=== PATIENT | female | born 1940 | race Caucasian/White ===

== ENCOUNTER 2018-08-04 15:04 | Observation (INO) ==
[2018-08-04] MEDS ORDERED: 0.9 % SODIUM CHLORIDE 1,000 ML IV ONE ×2 (15:48→17:18)
[2018-08-04 15:52] LABS: Basophils # (Auto) 0 K/mcL (0.0-0.3); Basophils % (Auto) 0.3 % (0.0-2.0); Eosinophils # (Auto) 0.1 K/mcL (0.0-0.7); Eosinophils % (Auto) 0.9 % (0.0-7.0); Granulocytes % (Auto) 64.6 % (38.0-78.0); Lymphocytes # (Auto) 1.9 K/mcL (1.5-4.8); Lymphocytes % (Auto) 27.4 % (15.5-49.0); Mean Cell Volume 80.6 fL (80.0-100.0); Mean Corpuscular HGB Conc 32.4 g/dL (31.0-36.0); Monocytes # (Auto) 0.5 K/mcL (0.1-0.9); Monocytes % (Auto) 6.8 % (1.0-12.0); Platelet Count 176 K/mcL (140-440); RBC 4.49 M/mcL (4.00-5.20); Red Cell Distribution Width 14.8 % (11.5-14.5)
[2018-08-04 16:22] LABS: ALT/SGPT 7 U/l (0-40); Albumin 3.5 gm/dL (3.2-5.2); Alkaline Phosphatase 140 U/L (39-117); Blood Urea Nitrogen 24 mg/dl (8-23); Creatine Kinase 29 IU/L (24-170); Creatine Kinase MB 1.2 ng/ml (0-2.9); Myoglobin 28 ng/ml (25-58)
--- NOTE | 2018-08-04 16:27 | Cat Scan Report ---
History: Syncopal episode TECHNIQUE: The brain was imaged without contrast at 2.5 mm intervals. Radiation exposure was limited using dose reduction technology. FINDINGS: There is moderate hydrocephalus with dilatation of the lateral ventricles and mild dilatation of third ventricle. The temporal horns of the lateral ventricles have become markedly dilated compared with the prior study done at 04/15/14. The fourth ventricle is normal in size. There is no transependymal reabsorption of CSF. Patient has underlying mild generalized atrophy both above and below the tentorium. There is no apparent infarct and no hemorrhage or mass effect. No abnormal extra-axial fluid collection is present. Bone windows show no skull lesion. IMPRESSION: Moderate hydrocephalus Patricia Mitchell was called with the results Interpreted and Authenticated by: Dinesh Verdin 08/04/18
--- NOTE | 2018-08-04 16:28 | XRay Report ---
HISTORY: Syncope FINDINGS: Lungs are clear. The heart size is within upper limits of normal but magnified by AP technique. There is no congestive heart failure or pleural effusion. There are calcified plaques in the aortic arch. Multiple surgical clips are seen overlying the stomach. There is a metal pin in the left clavicle, along with an old healed fracture. Comparison with the prior exam from 04/19/14 shows the heart is larger on today's exam. However, the prior study was done PA and the current study was done AP which may magnify the heart. IMPRESSION: Borderline cardiomegaly and no acute abnormality Interpreted and Authenticated by: Dinesh Verdin 08/04/18
[2018-08-04 16:32] LABS: Appearance,Urine TURBID; Bacteria,Urine MOD /hpf (0); Bilirubin,Urine NEG (NEG); Color,Urine YELLOW; Glucose,Urine (UA) NEGATIVE (NEG); Leukocyte Esterase,Urine 500 /uL (NEG); Mucus,Urine MANY /hpf (0); Protein,Urine 100 mg/dL (NEG); Specific Gravity,Urine 1.015 (1.000-1.035); Urine Blood 0.03 mg/dL (<0.03); Urine Hyaline Cast 27 /lpf (0-2); Urine RBC 30 /hpf (0-1); Urine Squamous Epithelial Cell 10 /hpf (0-4); Urine Transitional Epi Cells 3 /hpf (0-2); Urine WBC > 182 /hpf (0-4); Urobilinogen,Urine NEG (NEG)
--- NOTE | 2018-08-04 17:20 | Emergency Department Note ---
Syncope HPI - General Chief Complaint: Syncope Stated Complaint: Syncope Time Seen by Provider: 08/04/18 15:06 Source: EMS Mode of arrival: EMS Limitations: no limitations - History of Present Illness HPI Narrative: See the history and physical dictated by Patricia Gilbert. With the CT finding of hydrocephalus, I spoke with family about considerations and discussed these things with Patricia and reviewed patient's findings and chart. She was somewhat sleepy in the room although arousable. Family was appreciative of discussion and reviewing options. - Related Data Previous Rx's Medication Instructions Recorded sitagliptin 100 mg tablet 100 mg PO QHS #90 tab 04/14/16 sennosides 8.6 mg tablet 8.6 mg PO BID #60 tab 10/21/16 Diabetic Shoes #1 ea 11/18/17 ketoconazole 2 % topical cream 1 applic TOPICAL BID #30 g 02/17/18 nystatin 100,000 unit/gram topical 1 applic TOPICAL BID #60 g 02/17/18 powder atorvastatin 20 mg tablet 20 mg PO QDAY #90 tab 07/18/18 lisinopril 10 mg tablet 10 mg PO QDAY #90 tab 07/18/18 metformin ER 1,000 mg 1,000 mg PO QAM #30 tab 07/21/18 tablet,extended release 24hr doxycycline hyclate 100 mg tablet 100 mg PO BID #20 tab 08/02/18 escitalopram 10 mg tablet 10 mg PO QDAY #90 tab 08/02/18 fluconazole 150 mg tablet 150 mg PO Q3D #3 tab 08/02/18 Allergies Allergy/AdvReac Type Severity Reaction Status Date / Time acetaminophen [From Vicodin] Allergy Unknown Nausea Verified 08/04/18 15:08 hydrocodone [From Vicodin] Allergy Unknown Nausea Verified 08/04/18 15:08 levofloxacin Allergy Unknown Vomiting Verified 08/04/18 15:08 iodine Allergy Unknown Verified 08/04/18 15:08 piroxicam [From Feldene] Allergy Rash Verified 08/04/18 15:08 hydrocodone-acetaminophen Allergy Unknown Nausea Uncoded 08/02/18 13:29 Past Medical History - Past Medical History 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 Father No problems noted. Mother Hydrocephalus Medical history: Reports: other (history of colon cancer) Surgical history ED: Reports: cancer surgery - Social History smoking status: Never smoker Alcohol use: Reports: None Physical Exam Limitations: no limitations General appearance: sleepy Head: atraumatic Eye: Present: EOMI Respiratory: Absent: respiratory distress Neurological: Present: other (Resting peacefully) Course Vital Signs Temperature 97.0 F 08/04/18 15:05 Pulse Rate 97 H 08/04/18 15:05 Respiratory Rate 20 08/04/18 15:05 Blood Pressure 163/112 08/04/18 15:05 Pulse Oximetry (%) 93 08/04/18 15:05 Temperature 97.0 F 08/04/18 15:05 Pulse Rate 65 08/04/18 17:36 Respiratory Rate 18 08/04/18 17:36 Blood Pressure 89/38 08/04/18 17:36 Pulse Oximetry (%) 94 08/04/18 17:36 Syncope - Medical Records Medical records reviewed: Yes I reviewed the patient's medical records. - Lab Data Lab results reviewed: Yes I reviewed the patient's lab results. Result diagrams: 08/04/18 15:27 08/04/18 15:26 Lab Results 08/04/18 08/04/18 08/04/18 Range/Units 15:26 15:26 15:26 WBC (4.5-11.0) K/mcL RBC (4.00-5.20) M/mcL Hgb (12.0-15.0) g/dL Hct (36.0-48.0) % MCV (80.0-100.0) fL MCH (26.0-34.0) pg MCHC (31.0-36.0) g/dL RDW (11.5-14.5) % Plt Count (140-440) K/mcL MPV (7.4-10.4) fL Gran % (38.0-78.0) % Lymph % (Auto) (15.5-49.0) % [place] % (Auto) (1.0-12.0) % Eos % (Auto) (0.0-7.0) % Baso % (Auto) (0.0-2.0) % Gran # (1.8-8.0) K/mcL Lymph # (Auto) (1.5-4.8) K/mcL [place] # (Auto) (0.1-0.9) K/mcL Eos # (Auto) (0.0-0.7) K/mcL Baso # (Auto) (0.0-0.3) K/mcL VBG Lactic Acid (0.5-2.0) mmol/L Sodium 138 (133-145) mmol/L Potassium 4.7 (3.3-5.1) mmol/L Chloride 103 (96-108) mmol/L Carbon Dioxide 20 L (22-30) mmol/L Anion Gap 15.0 (8-16) BUN 24 H (8-23) mg/dl Creatinine 1.2 H (0.6-1.1) mg/dl GFR Calculation 43 Glucose 215 H (70-105) mg/dL Calcium 8.6 (8.6-10.4) mg/dl Total Bilirubin 0.4 (0.0-1.0) mg/dL AST 13 (0-37) U/l ALT 7 (0-40) U/l Alkaline Phosphatase 140 H (39-117) U/L Total Creatine Kinase 29 (24-170) IU/L CK-MB (CK-2) 1.2 (0-2.9) ng/ml Myoglobin 28 (25-58) ng/ml Troponin T < 0.01 (0-0.03) ng/ml Total Protein 6.9 (5.9-8.4) gm/dL Albumin 3.5 (3.2-5.2) gm/dL Globulin 3.4 (2.2-3.7) gm/dL Albumin/Globulin Ratio 1.0 (1.0-2.3) Procalcitonin (<0.10) ng/mL Urine Color Urine Appearance Urine pH (5.0-9.0) Ur Specific [place] (1.000-1.035) Urine Protein (NEG) mg/dL Urine Glucose (UA) (NEG) mg/dL Urine Ketones (NEG) mg/dL Urine Occult Blood (<0.03) mg/dL Urine Nitrate (NEG) Urine Bilirubin (NEG) mg/dL Urine Urobilinogen (NEG) mg/dL Ur Leukocyte Esterase (NEG) /uL Urine RBC (0-1) /hpf Urine WBC (0-4) /hpf Ur Squamous Epith Cells (0-4) /hpf Ur Transition Epith Cell (0-2) /hpf Urine Bacteria (0) /hpf Hyaline Casts (0-2) /lpf Urine Mucus (0) /hpf Ur Culture Indicated? 08/04/18 08/04/18 08/04/18 Range/Units 15:26 15:27 15:55 WBC 6.8 (4.5-11.0) K/mcL RBC 4.49 (4.00-5.20) M/mcL Hgb 11.7 L (12.0-15.0) g/dL Hct 36.2 (36.0-48.0) % MCV 80.6 (80.0-100.0) fL MCH 26.1 (26.0-34.0) pg MCHC 32.4 (31.0-36.0) g/dL RDW 14.8 H (11.5-14.5) % Plt Count 176 (140-440) K/mcL MPV 9.5 (7.4-10.4) fL Gran % 64.6 (38.0-78.0) % Lymph % (Auto) 27.4 (15.5-49.0) % [place] % (Auto) 6.8 (1.0-12.0) % Eos % (Auto) 0.9 (0.0-7.0) % Baso % (Auto) 0.3 (0.0-2.0) % Gran # 4.4 (1.8-8.0) K/mcL Lymph # (Auto) 1.9 (1.5-4.8) K/mcL [place] # (Auto) 0.5 (0.1-0.9) K/mcL Eos # (Auto) 0.1 (0.0-0.7) K/mcL Baso # (Auto) 0 (0.0-0.3) K/mcL VBG Lactic Acid (0.5-2.0) mmol/L Sodium (133-145) mmol/L Potassium (3.3-5.1) mmol/L Chloride (96-108) mmol/L Carbon Dioxide (22-30) mmol/L Anion Gap (8-16) BUN (8-23) mg/dl Creatinine (0.6-1.1) mg/dl GFR Calculation Glucose (70-105) mg/dL Calcium (8.6-10.4) mg/dl Total Bilirubin (0.0-1.0) mg/dL AST (0-37) U/l ALT (0-40) U/l Alkaline Phosphatase (39-117) U/L Total Creatine Kinase (24-170) IU/L CK-MB (CK-2) (0-2.9) ng/ml Myoglobin (25-58) ng/ml Troponin T (0-0.03) ng/ml Total Protein (5.9-8.4) gm/dL Albumin (3.2-5.2) gm/dL Globulin (2.2-3.7) gm/dL Albumin/Globulin Ratio (1.0-2.3) Procalcitonin 0.25 (<0.10) ng/mL Urine Color Yellow Urine Appearance Turbid Urine pH 5.0 (5.0-9.0) Ur Specific [place] 1.015 (1.000-1.035) Urine Protein 100 A (NEG) mg/dL Urine Glucose (UA) Negative (NEG) mg/dL Urine Ketones Neg (NEG) mg/dL Urine Occult Blood 0.03 A (<0.03) mg/dL Urine Nitrate Neg (NEG) Urine Bilirubin Neg (NEG) mg/dL Urine Urobilinogen Neg (NEG) mg/dL Ur Leukocyte Esterase 500 A (NEG) /uL Urine RBC 30 H (0-1) /hpf Urine WBC > 182 H (0-4) /hpf Ur Squamous Epith Cells 10 H (0-4) /hpf Ur Transition Epith Cell 3 H (0-2) /hpf Urine Bacteria Mod A (0) /hpf Hyaline Casts 27 H (0-2) /lpf Urine Mucus Many A (0) /hpf Ur Culture Indicated? No 08/04/18 Range/Units 15:57 WBC (4.5-11.0) K/mcL RBC (4.00-5.20) M/mcL Hgb (12.0-15.0) g/dL Hct (36.0-48.0) % MCV (80.0-100.0) fL MCH (26.0-34.0) pg MCHC (31.0-36.0) g/dL RDW (11.5-14.5) % Plt Count (140-440) K/mcL MPV (7.4-10.4) fL Gran % (38.0-78.0) % Lymph % (Auto) (15.5-49.0) % [place] % (Auto) (1.0-12.0) % Eos % (Auto) (0.0-7.0) % Baso % (Auto) (0.0-2.0) % Gran # (1.8-8.0) K/mcL Lymph # (Auto) (1.5-4.8) K/mcL [place] # (Auto) (0.1-0.9) K/mcL Eos # (Auto) (0.0-0.7) K/mcL Baso # (Auto) (0.0-0.3) K/mcL VBG Lactic Acid 1.5 (0.5-2.0) mmol/L Sodium (133-145) mmol/L Potassium (3.3-5.1) mmol/L Chloride (96-108) mmol/L Carbon Dioxide (22-30) mmol/L Anion Gap (8-16) BUN (8-23) mg/dl Creatinine (0.6-1.1) mg/dl GFR Calculation Glucose (70-105) mg/dL Calcium (8.6-10.4) mg/dl Total Bilirubin (0.0-1.0) mg/dL AST (0-37) U/l ALT (0-40) U/l Alkaline Phosphatase (39-117) U/L Total Creatine Kinase (24-170) IU/L CK-MB (CK-2) (0-2.9) ng/ml Myoglobin (25-58) ng/ml Troponin T (0-0.03) ng/ml Total Protein (5.9-8.4) gm/dL Albumin (3.2-5.2) gm/dL Globulin (2.2-3.7) gm/dL Albumin/Globulin Ratio (1.0-2.3) Procalcitonin (<0.10) ng/mL Urine Color Urine Appearance Urine pH (5.0-9.0) Ur Specific [place] (1.000-1.035) Urine Protein (NEG) mg/dL Urine Glucose (UA) (NEG) mg/dL Urine Ketones (NEG) mg/dL Urine Occult Blood (<0.03) mg/dL Urine Nitrate (NEG) Urine Bilirubin (NEG) mg/dL Urine Urobilinogen (NEG) mg/dL Ur Leukocyte Esterase (NEG) /uL Urine RBC (0-1) /hpf Urine WBC (0-4) /hpf Ur Squamous Epith Cells (0-4) /hpf Ur Transition Epith Cell (0-2) /hpf Urine Bacteria (0) /hpf Hyaline Casts (0-2) /lpf Urine Mucus (0) /hpf Ur Culture Indicated? - Radiology Data Radiology results reviewed: Yes I reviewed the patient's radiology results. - EKG Data EKG results narrative: No acute coronary syndrome findings. Right bundle branch block with LAFB. This ECG will be read by a chain machine operator. Disposition Pt seen by [facility]/PA only: No Clinical Impression: Syncope Qualifiers: Syncope type: unspecified Qualified Code(s): R55 - Syncope and collapse Hypotension Qualifiers: Hypotension type: unspecified hypotension type Qualified Code(s): I95.9 - Hypotension, unspecified Hydrocephalus Qualifiers: Hydrocephalus type: unspecified Qualified Code(s): G91.9 - Hydrocephalus, unspecified UTI (urinary tract infection) Qualifiers: Urinary tract infection type: urethritis Qualified Code(s): N34.2 - Other urethritis Summary: After a liter of fluid, patient still had some low blood pressures. These were systolic 89 and 90s several times. Patient's labs were unremarkable for signs of sepsis including a normal lactic acid at 1.5, white count was normal. She had no hypoxia. She was not tachycardic. She did have what appears to be significant bacteriuria. Discussion with family includes that the hydrocephalus will remain untreated as it is doubtful that it would make a major difference for patient and patient's mother had similar findings and problems, received a shunt, and it did not make any significant difference for her. With patient having hypotension, UTI, syncopal episode or near syncopal, it seems reasonable to monitor for how to help this blood pressure be improved as this is the most likely cause. Holding her lisinopril can be done, an antibiotic (ceftriaxone) has been ordered, blood cultures have been ordered. 5:30 PM - I spoke with Dr. Milan Olvera, hospitalist, who is accepting patient's care inpatient order for observation to help with above considerations. Disposition: Xfer As Outpt/Obs ([facility]) Referrals: Deep Hoover MD [Primary Care Provider] -
--- NOTE | 2018-08-04 17:25 | Emergency Department Note ---
Syncope HPI - General Chief Complaint: Syncope Stated Complaint: Syncope Time Seen by Provider: 08/04/18 15:06 Source: family, EMS Mode of arrival: EMS Limitations: altered mental status - History of Present Illness HPI Narrative: 78-year-old female in ED with sudden syncopal episode while sitting. Patient was with her daughter at the doctor's office during husbands visit. Daughter and patient walked to the bathroom and then sat in the waiting room. Daughter states patient became slightly agitated and took her wedding rings off then gave daughter a blank stare and passed out. Daughter called for help and EMS was called. Dr. Hoover reported patient appeared to have left facial droop, and took approximately 4 minutes to recover. EMS states patient was alert to verbal. Patient's SPO2 was within normal range upon EMS arrival. Patient's blood pressure was also 138/68, blood sugar 168. Patient does have dementia. Daughter states patient does walk, states patient's activity has decreased immensely. Patient has been sleeping in and staying in bed for long periods of time. Patient was assessed per wellness exam 2 days ago. Biggest concern was rash on her lower abdomen. She does not smoke, does not drink alcohol, does have a double marijuana cookies rather regularly. Last cookie was ingested 12:30. Patient does not normally have an episode like this with the cookies. Daughter states it helps patient with agitation. MD Complaint: loss of consciousness Onset (ago): minute(s) (30) Duration of Episode: 4 (minutes) Witnessed: yes - by bystander Context: at rest Injuries Sustained Associated with Event: none Current Symptoms: back to baseline (hypotension) Treatments prior to arrival: none - Related Data Previous Rx's Medication Instructions Recorded sitagliptin 100 mg tablet 100 mg PO QHS #90 tab 04/14/16 sennosides 8.6 mg tablet 8.6 mg PO BID #60 tab 10/21/16 Diabetic Shoes #1 ea 11/18/17 ketoconazole 2 % topical cream 1 applic TOPICAL BID #30 g 02/17/18 nystatin 100,000 unit/gram topical 1 applic TOPICAL BID #60 g 02/17/18 powder atorvastatin 20 mg tablet 20 mg PO QDAY #90 tab 07/18/18 lisinopril 10 mg tablet 10 mg PO QDAY #90 tab 07/18/18 metformin ER 1,000 mg 1,000 mg PO QAM #30 tab 07/21/18 tablet,extended release 24hr doxycycline hyclate 100 mg tablet 100 mg PO BID #20 tab 08/02/18 escitalopram 10 mg tablet 10 mg PO QDAY #90 tab 08/02/18 fluconazole 150 mg tablet 150 mg PO Q3D #3 tab 08/02/18 Allergies Allergy/AdvReac Type Severity Reaction Status Date / Time acetaminophen [From Vicodin] Allergy Unknown Nausea Verified 08/04/18 15:08 hydrocodone [From Vicodin] Allergy Unknown Nausea Verified 08/04/18 15:08 levofloxacin Allergy Unknown Vomiting Verified 08/04/18 15:08 iodine Allergy Unknown Verified 08/04/18 15:08 piroxicam [From Feldene] Allergy Rash Verified 08/04/18 15:08 hydrocodone-acetaminophen Allergy Unknown Nausea Uncoded 08/02/18 13:29 Review of Systems All systems ED: reviewed and negative except as stated. 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 Absent: conjunctival injection ENT: normal oropharynx, mucous membranes moist, TM's normal bilaterally, normal external ear exam Neck: Present: normal inspection. Absent: tenderness, lymphadenopathy Chest: Present: normal inspection, symmetric chest wall rise. Absent: tenderness Respiratory: Present: normal lung sounds bilaterally. Absent: respiratory distress, rales/crackles, wheezes, stridor Cardiovascular: Present: irregular rhythm Abdominal: Present: soft, tenderness, normal bowel sounds. Absent: distention, guarding, rebound, rigidity Abdominal tenderness: Present: diffuse Extremities: Present: normal inspection. Absent: pedal edema Neurological: Present: alert (to verbal, keeps eyes closed), other (patient difficult to assess, she does squeeze both hands and move both feet accordingly. Does not follow with eyes or near any facial expressions, patient repeats I'm tired I just want to sleep.). Absent: normal gait Skin: Present: warm, dry, intact, normal color. Absent: cool, diaphoretic Course Vital Signs Temperature 97.0 F 08/04/18 15:05 Pulse Rate 97 H 08/04/18 15:05 Respiratory Rate 20 08/04/18 15:05 Blood Pressure 163/112 08/04/18 15:05 Pulse Oximetry (%) 93 08/04/18 15:05 Temperature 97.0 F 08/04/18 15:05 Pulse Rate 65 08/04/18 17:36 Respiratory Rate 18 08/04/18 17:36 Blood Pressure 89/38 08/04/18 17:36 Pulse Oximetry (%) 94 08/04/18 17:36 Syncope - MDM Narrative Medical decision making narrative: Patient provided total 2 L normal saline, 1 g ceftriaxone. Consulted with Dr. Antoine who visited with the family, and called hospitalist. Dr. Olvera to accept patient. - Lab Data Lab results reviewed: Yes I reviewed the patient's lab results. Result diagrams: 08/04/18 15:27 08/04/18 15:26 Lab Results 08/04/18 08/04/18 08/04/18 Range/Units 15:26 15:26 15:26 WBC (4.5-11.0) K/mcL RBC (4.00-5.20) M/mcL Hgb (12.0-15.0) g/dL Hct (36.0-48.0) % MCV (80.0-100.0) fL MCH (26.0-34.0) pg MCHC (31.0-36.0) g/dL RDW (11.5-14.5) % Plt Count (140-440) K/mcL MPV (7.4-10.4) fL Gran % (38.0-78.0) % Lymph % (Auto) (15.5-49.0) % [place] % (Auto) (1.0-12.0) % Eos % (Auto) (0.0-7.0) % Baso % (Auto) (0.0-2.0) % Gran # (1.8-8.0) K/mcL Lymph # (Auto) (1.5-4.8) K/mcL [place] # (Auto) (0.1-0.9) K/mcL Eos # (Auto) (0.0-0.7) K/mcL Baso # (Auto) (0.0-0.3) K/mcL VBG Lactic Acid (0.5-2.0) mmol/L Sodium 138 (133-145) mmol/L Potassium 4.7 (3.3-5.1) mmol/L Chloride 103 (96-108) mmol/L Carbon Dioxide 20 L (22-30) mmol/L Anion Gap 15.0 (8-16) BUN 24 H (8-23) mg/dl Creatinine 1.2 H (0.6-1.1) mg/dl GFR Calculation 43 Glucose 215 H (70-105) mg/dL Calcium 8.6 (8.6-10.4) mg/dl Total Bilirubin 0.4 (0.0-1.0) mg/dL AST 13 (0-37) U/l ALT 7 (0-40) U/l Alkaline Phosphatase 140 H (39-117) U/L Total Creatine Kinase 29 (24-170) IU/L CK-MB (CK-2) 1.2 (0-2.9) ng/ml Myoglobin 28 (25-58) ng/ml Troponin T < 0.01 (0-0.03) ng/ml Total Protein 6.9 (5.9-8.4) gm/dL Albumin 3.5 (3.2-5.2) gm/dL Globulin 3.4 (2.2-3.7) gm/dL Albumin/Globulin Ratio 1.0 (1.0-2.3) Procalcitonin (<0.10) ng/mL Urine Color Urine Appearance Urine pH (5.0-9.0) Ur Specific [place] (1.000-1.035) Urine Protein (NEG) mg/dL Urine Glucose (UA) (NEG) mg/dL Urine Ketones (NEG) mg/dL Urine Occult Blood (<0.03) mg/dL Urine Nitrate (NEG) Urine Bilirubin (NEG) mg/dL Urine Urobilinogen (NEG) mg/dL Ur Leukocyte Esterase (NEG) /uL Urine RBC (0-1) /hpf Urine WBC (0-4) /hpf Ur Squamous Epith Cells (0-4) /hpf Ur Transition Epith Cell (0-2) /hpf Urine Bacteria (0) /hpf Hyaline Casts (0-2) /lpf Urine Mucus (0) /hpf Ur Culture Indicated? 08/04/18 08/04/18 08/04/18 Range/Units 15:26 15:27 15:55 WBC 6.8 (4.5-11.0) K/mcL RBC 4.49 (4.00-5.20) M/mcL Hgb 11.7 L (12.0-15.0) g/dL Hct 36.2 (36.0-48.0) % MCV 80.6 (80.0-100.0) fL MCH 26.1 (26.0-34.0) pg MCHC 32.4 (31.0-36.0) g/dL RDW 14.8 H (11.5-14.5) % Plt Count 176 (140-440) K/mcL MPV 9.5 (7.4-10.4) fL Gran % 64.6 (38.0-78.0) % Lymph % (Auto) 27.4 (15.5-49.0) % [place] % (Auto) 6.8 (1.0-12.0) % Eos % (Auto) 0.9 (0.0-7.0) % Baso % (Auto) 0.3 (0.0-2.0) % Gran # 4.4 (1.8-8.0) K/mcL Lymph # (Auto) 1.9 (1.5-4.8) K/mcL [place] # (Auto) 0.5 (0.1-0.9) K/mcL Eos # (Auto) 0.1 (0.0-0.7) K/mcL Baso # (Auto) 0 (0.0-0.3) K/mcL VBG Lactic Acid (0.5-2.0) mmol/L Sodium (133-145) mmol/L Potassium (3.3-5.1) mmol/L Chloride (96-108) mmol/L Carbon Dioxide (22-30) mmol/L Anion Gap (8-16) BUN (8-23) mg/dl Creatinine (0.6-1.1) mg/dl GFR Calculation Glucose (70-105) mg/dL Calcium (8.6-10.4) mg/dl Total Bilirubin (0.0-1.0) mg/dL AST (0-37) U/l ALT (0-40) U/l Alkaline Phosphatase (39-117) U/L Total Creatine Kinase (24-170) IU/L CK-MB (CK-2) (0-2.9) ng/ml Myoglobin (25-58) ng/ml Troponin T (0-0.03) ng/ml Total Protein (5.9-8.4) gm/dL Albumin (3.2-5.2) gm/dL Globulin (2.2-3.7) gm/dL Albumin/Globulin Ratio (1.0-2.3) Procalcitonin 0.25 (<0.10) ng/mL Urine Color Yellow Urine Appearance Turbid Urine pH 5.0 (5.0-9.0) Ur Specific [place] 1.015 (1.000-1.035) Urine Protein 100 A (NEG) mg/dL Urine Glucose (UA) Negative (NEG) mg/dL Urine Ketones Neg (NEG) mg/dL Urine Occult Blood 0.03 A (<0.03) mg/dL Urine Nitrate Neg (NEG) Urine Bilirubin Neg (NEG) mg/dL Urine Urobilinogen Neg (NEG) mg/dL Ur Leukocyte Esterase 500 A (NEG) /uL Urine RBC 30 H (0-1) /hpf Urine WBC > 182 H (0-4) /hpf Ur Squamous Epith Cells 10 H (0-4) /hpf Ur Transition Epith Cell 3 H (0-2) /hpf Urine Bacteria Mod A (0) /hpf Hyaline Casts 27 H (0-2) /lpf Urine Mucus Many A (0) /hpf Ur Culture Indicated? No 08/04/18 Range/Units 15:57 WBC (4.5-11.0) K/mcL RBC (4.00-5.20) M/mcL Hgb (12.0-15.0) g/dL Hct (36.0-48.0) % MCV (80.0-100.0) fL MCH (26.0-34.0) pg MCHC (31.0-36.0) g/dL RDW (11.5-14.5) % Plt Count (140-440) K/mcL MPV (7.4-10.4) fL Gran % (38.0-78.0) % Lymph % (Auto) (15.5-49.0) % [place] % (Auto) (1.0-12.0) % Eos % (Auto) (0.0-7.0) % Baso % (Auto) (0.0-2.0) % Gran # (1.8-8.0) K/mcL Lymph # (Auto) (1.5-4.8) K/mcL [place] # (Auto) (0.1-0.9) K/mcL Eos # (Auto) (0.0-0.7) K/mcL Baso # (Auto) (0.0-0.3) K/mcL VBG Lactic Acid 1.5 (0.5-2.0) mmol/L Sodium (133-145) mmol/L Potassium (3.3-5.1) mmol/L Chloride (96-108) mmol/L Carbon Dioxide (22-30) mmol/L Anion Gap (8-16) BUN (8-23) mg/dl Creatinine (0.6-1.1) mg/dl GFR Calculation Glucose (70-105) mg/dL Calcium (8.6-10.4) mg/dl Total Bilirubin (0.0-1.0) mg/dL AST (0-37) U/l ALT (0-40) U/l Alkaline Phosphatase (39-117) U/L Total Creatine Kinase (24-170) IU/L CK-MB (CK-2) (0-2.9) ng/ml Myoglobin (25-58) ng/ml Troponin T (0-0.03) ng/ml Total Protein (5.9-8.4) gm/dL Albumin (3.2-5.2) gm/dL Globulin (2.2-3.7) gm/dL Albumin/Globulin Ratio (1.0-2.3) Procalcitonin (<0.10) ng/mL Urine Color Urine Appearance Urine pH (5.0-9.0) Ur Specific [place] (1.000-1.035) Urine Protein (NEG) mg/dL Urine Glucose (UA) (NEG) mg/dL Urine Ketones (NEG) mg/dL Urine Occult Blood (<0.03) mg/dL Urine Nitrate (NEG) Urine Bilirubin (NEG) mg/dL Urine Urobilinogen (NEG) mg/dL Ur Leukocyte Esterase (NEG) /uL Urine RBC (0-1) /hpf Urine WBC (0-4) /hpf Ur Squamous Epith Cells (0-4) /hpf Ur Transition Epith Cell (0-2) /hpf Urine Bacteria (0) /hpf Hyaline Casts (0-2) /lpf Urine Mucus (0) /hpf Ur Culture Indicated? - Radiology Data Radiology results reviewed: Yes I reviewed the patient's radiology results. Chest x-ray: FINDINGS: Lungs are clear. The heart size is within upper limits of normal but magnified by AP technique. There is no congestive heart failure or pleural effusion. There are calcified plaques in the aortic arch. Multiple surgical clips are seen overlying the stomach. There is a metal pin in the left clavicle, along with an old healed fracture. Comparison with the prior exam from 04/19/14 shows the heart is larger on today's exam. However, the prior study was done PA and the current study was done AP which may magnify the heart. IMPRESSION: Borderline cardiomegaly and no acute abnormality Head CT without contrast: History: Syncopal episode TECHNIQUE: The brain was imaged without contrast at 2.5 mm intervals. Radiation exposure was limited using dose reduction technology. FINDINGS: There is moderate hydrocephalus with dilatation of the lateral ventricles and mild dilatation of third ventricle. The temporal horns of the lateral ventricles have become markedly dilated compared with the prior study done at 04/15/14. The fourth ventricle is normal in size. There is no transependymal reabsorption of CSF. Patient has underlying mild generalized atrophy both above and below the tentorium. There is no apparent infarct and no hemorrhage or mass effect. No abnormal extra-axial fluid collection is present. Bone windows show no skull lesion. IMPRESSION: Moderate hydrocephalus Patricia Mitchell was called with the results Disposition Pt seen by [employer]/PA only: No (Arash) Clinical Impression: Syncope Qualifiers: Syncope type: unspecified Qualified Code(s): R55 - Syncope and collapse Hypotension Qualifiers: Hypotension type: unspecified hypotension type Qualified Code(s): I95.9 - Hypotension, unspecified Hydrocephalus Qualifiers: Hydrocephalus type: unspecified Qualified Code(s): G91.9 - Hydrocephalus, unspecified UTI (urinary tract infection) Qualifiers: Urinary tract infection type: urethritis Qualified Code(s): N34.2 - Other urethritis Disposition: Xfer As Outpt/Obs ([facility]) Condition: Fair Referrals: Deep Hoover MD [Primary Care Provider] - Time of Disposition: 18:23
[2018-08-04] MEDS ORDERED: cefTRIAXone 1 GM VIAL IM ONE (17:29)
[2018-08-04] MEDS ORDERED: cefTRIAXone 1 GM in DEXTROSE 5% IN WATER 50 ML IV SCH ×2 (17:45→18:53)
--- NOTE | 2018-08-04 18:11 | Internal Med History&Physical ---
Medical - H&P: [facility] Patient information: Note initiated : 08/04/18 at 6:10 pm Service Date, if different from initiated Date: [] Patient: Kyleigh Nascimento a 78 y/o F admitted on for Syncope. Chief Complaint: [] History of present illness: Ms. Nascimento is a 78 year old F Who presents the ED for syncope. History is obtained from the chart as the patient has advanced dementia and unable to give history. Family members are not present, Per the chart patient was at a doctor's office for her with the daughter as well. The patient went to the bathroom and sat in the waiting room. Daughter states the patient became agitated took her wedding rings off and gave her a blank stare and passed out. Sounds like it took about 4 minutes for her to recover. No witnessed seizure activity mention no mention of urinary incontinence or tongue biting. History is vague on if it was actually syncope or decreased level of consciousness with near syncope. She has had continued mental decline especially as of late. Staying in bed longer each day. Also recently developed a rash wound on her abdomen. Uses marijuana cookies for agitation daughter states that helps. In the ED she had labile blood pressures with systolics as low as 89 and 90. EKG showed no arrhythmias but did have a prolonged QT, QRS was prolonged but that was chronic based on old EKGs. Urinalysis was dirty and had hyaline casts as well. Procalcitonin was mildly elevated borderline. Troponin and lactate were okay. Her blood glucose at the time EMS checked her in the office was okay. She did have a low blood pressure in the office of systolic 103, perhaps she has been running low. Imaging included chest x-ray which is unremarkable and a CT brain which showed moderate hydrocephalus. This was discussed with family regarding what it meant and potential treatments. Family does not want any aggressive measures incl uding a BUTCHER shunt as the patient mothers had a BUTCHER shunt have made no difference. Unable to gather review of systems given patient's advanced dementia. 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 Father No problems noted. Mother Hydrocephalus Social History (Last Updated 08/02/18 @ 16:07 by Deep Hoover MD) lives with and daughter no smoking or etoh marijuana cookies regularly Medical - H&P: Meds Home Medications Medication Instructions Recorded Confirmed Type sitagliptin 100 mg tablet 100 mg PO QHS #90 tab 04/14/16 08/02/18 Rx sennosides 8.6 mg tablet 8.6 mg PO BID #60 tab 10/21/16 08/02/18 Rx Diabetic Shoes #1 ea 11/18/17 08/02/18 Rx ketoconazole 2 % topical cream 1 applic TOPICAL BID #30 g 02/17/18 08/02/18 Rx nystatin 100,000 unit/gram topical 1 applic TOPICAL BID #60 g 02/17/18 08/02/18 Rx powder atorvastatin 20 mg tablet 20 mg PO QDAY #90 tab 07/18/18 08/02/18 Rx lisinopril 10 mg tablet 10 mg PO QDAY #90 tab 07/18/18 08/02/18 Rx metformin ER 1,000 mg 1,000 mg PO QAM #30 tab 07/21/18 08/02/18 Rx tablet,extended release 24hr doxycycline hyclate 100 mg tablet 100 mg PO BID #20 tab 08/02/18 08/02/18 Rx escitalopram 10 mg tablet 10 mg PO QDAY #90 tab 08/02/18 Rx fluconazole 150 mg tablet 150 mg PO Q3D #3 tab 08/02/18 08/02/18 Rx Allergies Allergy/AdvReac Type Severity Reaction Status Date / Time acetaminophen [From Vicodin] Allergy Unknown Nausea Verified 08/04/18 15:08 hydrocodone [From Vicodin] Allergy Unknown Nausea Verified 08/04/18 15:08 levofloxacin Allergy Unknown Vomiting Verified 08/04/18 15:08 iodine Allergy Unknown Verified 08/04/18 15:08 piroxicam [From Feldene] Allergy Rash Verified 08/04/18 15:08 hydrocodone-acetaminophen Allergy Unknown Nausea Uncoded 08/02/18 13:29 Medical - H&P: Exam - Constitutional Vitals: Temp Pulse Resp BP Pulse Ox 97.0 F 65 18 89/38 94 08/04/18 15:05 08/04/18 17:36 08/04/18 17:36 08/04/18 17:36 08/04/18 17:36 Exam: General: Alert, Awake, No acute Distress Eyes/N/T: EOMI, PEERL, MMM Head/Neck: neck supple, normocephalic atraumatic CV: Regular with occasional ectopic, No murmurs, normal s1/s2 Pulm: Clear b/l, no wheezing/rhonchi/rales Abd: soft, nontender, +BS x4, wound to the lower mid abdomen abdomen Ext: no clubbing/cyanosis/edema Neuro: Alert, no focal deficits, moves all extremities, CN 2-12 grossly intact, symmetrical strength b/l upper/lower, sensations intact b/l upper/lower Skin: warm/dry Medical - H&P: Reslt - Labs CBC & Chem 7: 08/04/18 15:27 08/04/18 15:26 Labs: Short CBC 08/04/18 Range/Units 15:27 WBC 6.8 (4.5-11.0) K/mcL Hgb 11.7 L (12.0-15.0) g/dL Hct 36.2 (36.0-48.0) % Plt Count 176 (140-440) K/mcL BMP 08/04/18 15:26 Sodium 138 Potassium 4.7 Chloride 103 Carbon Dioxide 20 L BUN 24 H Creatinine 1.2 H Glucose 215 H Calcium 8.6 Cardiac Enzymes 08/04/18 08/04/18 Range/Units 15:26 15:26 Total Creatine Kinase 29 (24-170) IU/L CK-MB (CK-2) 1.2 (0-2.9) ng/ml Troponin T < 0.01 (0-0.03) ng/ml Liver Function 08/04/18 Range/Units 15:26 Total Bilirubin 0.4 (0.0-1.0) mg/dL AST 13 (0-37) U/l ALT 7 (0-40) U/l Alkaline Phosphatase 140 H (39-117) U/L Albumin 3.5 (3.2-5.2) gm/dL Urine 08/04/18 Range/Units 15:55 Urine Color Yellow Urine Appearance Turbid Urine pH 5.0 (5.0-9.0) Ur Specific [place] 1.015 (1.000-1.035) Urine Protein 100 A (NEG) mg/dL Urine Glucose (UA) Negative (NEG) mg/dL - Impressions Chest x-ray unremarkable CT brain with moderate hydrocephalus EKG with a prolonged QRS which is chronic however she does have prolonged QT which was normal on old EKG. Medical - H&P: A/P - Narrative A/P Narrative: A: *?Syncope vs decrease LOC/near-syncope: etiology ?hypotension vs neurocardiogenic in setting of UTI. doubt cardiac but did have prolonged QT on EKG *Hypotension: likely poor oral intake vs BP meds *UTI: *Abdominal wound: *Advanced dementia: *Hydrocephalus: Family does not want to pursue any aggressive measures including BUTCHER shunt *DM: On metformin *HTN: On lisinopril 10 mg daily *CKD III: * P: -IVF's -Rocephin pending -tele monitoring and frequent Vital signs -Orthostatic VS -f/u EKG in AM -wound care - -pt/ot -ppx: lovenox
[2018-08-04] MEDS ORDERED: LACTULOSE 20 GM/30 ML ORAL.SOL PO PRN (18:53)
[2018-08-04] MEDS ORDERED: POTASSIUM CHLORIDE 20 MEQ TABLET PO PRN ×2 (18:53)
[2018-08-04] MEDS ORDERED: 0.9 % SODIUM CHLORIDE 1,000 ML IV SCH (18:53)
[2018-08-04] MEDS ORDERED: DEXTROSE 31 GM ORAL.SUSP PO PRN (18:53)
[2018-08-04] MEDS ORDERED: PROMETHAZINE 12.5 MG SUPP.RECT PR PRN (18:53)
[2018-08-04] MEDS ORDERED: SENNOSIDES 1 TABLET PO PRN (18:53)
[2018-08-04] MEDS ORDERED: ONDANSETRON 4 MG/2 ML VIAL IV PRN (18:53)
[2018-08-04] MEDS ORDERED: ACETAMINOPHEN 325 MG TABLET PO PRN (18:53)
[2018-08-04] MEDS ORDERED: ENALAPRILAT 1.25 MG/ML VIAL IV PRN (18:53)
[2018-08-04] MEDS ORDERED: DEXTROSE 50% 50 ML VIAL IV PRN (18:53)
[2018-08-04] MEDS ORDERED: POLYETHYLENE GLYCOL 3350 17 GM PACKET PO PRN (18:53)
[2018-08-04] MEDS ORDERED: PROMETHAZINE 25 MG TABLET PO PRN (18:53)
[2018-08-04] MEDS ORDERED: POTASSIUM CHLORIDE 40 MEQ in DEXTROSE 5% IN WATER 500 ML IV PRN (18:53)
[2018-08-04] MEDS ORDERED: IPRATROPIUM/ALBUTEROL 3 ML AMPUL.NEB NEB PRN (18:53)
[2018-08-04] MEDS ORDERED: MAGNESIUM SULFATE 2 GM/50 ML BAG IV PRN (18:53)
[2018-08-04] MEDS: DOCUSATE SODIUM 100 MG CAPSULE PO SCH (20:54)
[2018-08-04] MEDS: INSULIN LISPRO 1 UNIT/0.01 ML UNIT SQ SCH (20:54)
[2018-08-04] MEDS: 0.9 % SODIUM CHLORIDE 10 ML SYRINGE IV SCH (20:55)
[2018-08-05] MEDS ORDERED: OLANZapine 10 MG VIAL IM ONE (02:05)
[2018-08-05] MEDS ORDERED: OLANZapine 10 MG VIAL IM SCH (02:15)
[2018-08-05 04:37] LABS: Basophils # (Auto) 0 K/mcL (0.0-0.3); Basophils % (Auto) 0.4 % (0.0-2.0); Eosinophils # (Auto) 0 K/mcL (0.0-0.7); Eosinophils % (Auto) 0.1 % (0.0-7.0); Granulocytes % (Auto) 71.5 % (38.0-78.0); Lymphocytes # (Auto) 1.3 K/mcL (1.5-4.8); Lymphocytes % (Auto) 21.2 % (15.5-49.0); Mean Cell Volume 80.2 fL (80.0-100.0); Mean Corpuscular HGB Conc 32.9 g/dL (31.0-36.0); Monocytes # (Auto) 0.4 K/mcL (0.1-0.9); Monocytes % (Auto) 6.8 % (1.0-12.0); Platelet Count 174 K/mcL (140-440); RBC 4.24 M/mcL (4.00-5.20); Red Cell Distribution Width 14.9 % (11.5-14.5)
[2018-08-05] MEDS ORDERED: HALOPERIDOL LACTATE 5 MG/ML VIAL ONE ×2 (04:53→20:28)
[2018-08-05 05:00] LABS: ALT/SGPT 7 U/l (0-40); Albumin 3.3 gm/dL (3.2-5.2); Alkaline Phosphatase 131 U/L (39-117); Bilirubin,Direct < 0.2 mg/dL (0.0-0.3); Blood Urea Nitrogen 21 mg/dl (8-23); Gamma Glutamyl Transpeptidase 14 U/L (5-36); Uric Acid 7.7 mg/dL (2.5-8.0)
[2018-08-05] MEDS ORDERED: HALOPERIDOL LACTATE 5 MG/ML VIAL IM ONE (05:02)
[2018-08-05] MEDS: 0.9 % SODIUM CHLORIDE 10 ML SYRINGE IV SCH ×3 (05:26→22:34)
--- NOTE | 2018-08-05 07:19 | Internal Med Progress Note ---
Medical - PN: Subj Patient information: Note initiated : 08/05/18 at 7:16 am Service Date, if different from initiated Date: [] Patient: Kyleigh Nascimento a 78 y/o F admitted on 08/04/18 for Syncope. Chief Complaint: [] Interval history: Ms. Nascimento is a 78 year old F Who presents the ED for syncope. History is obtained from the chart as the patient has advanced dementia and unable to give history. Family members are not present, Per the chart patient was at a doctor's office for her with the daughter as well. The patient went to the bathroom and sat in the waiting room. Daughter states the patient became agitated took her wedding rings off and gave her a blank stare and passed out. Sounds like it took about 4 minutes for her to recover. No witnessed seizure activity mention no mention of urinary incontinence or tongue biting. History is vague on if it was actually syncope or decreased level of consciousness with near syncope. She has had continued mental decline especially as of late. Staying in bed longer each day. Also recently developed a rash wound on her abdomen. Uses marijuana cookies for agitation daughter states that helps. In the ED she had labile blood pressures with systolics as low as 89 and 90. EKG showed no arrhythmias but did have a prolonged QT, QRS was prolonged but that was chronic based on old EKGs. Urinalysis was dirty and had hyaline casts as well. Procalcitonin was mildly elevated borderline. Troponin and lactate were okay. Her blood glucose at the time EMS checked her in the office was okay. She did have a low blood pressure in the office of systolic 103, perhaps she has been running low. Imaging included chest x-ray which is unremarkable and a CT brain which showed moderate hydrocephalus. This was discussed with family regarding what it meant and potential treatments. Family does not want any aggressive measures inclu ding a FORGE OPERATOR shunt as the patient mothers had a FORGE OPERATOR shunt have made no difference. Unable to gather review of systems given patient's advanced dementia. 08/05 Became quite agitated and pulling at lines last night. Needed medication to calm her down. This morning she is resting comfortably in bed. No abnormalities on telemetry follow-up EKG with prolonged QT but better than yesterday EKG. No syncope. Labs unremarkable. Patient being treated for urinary tract infection. Unable to gather review of systems given patient's advanced dementia. - Constitutional Vitals: Vital Signs Temp Pulse Resp BP Pulse Ox 98.7 F 75 14 136/71 90 08/05/18 04:18 08/05/18 01:49 08/05/18 05:52 08/05/18 05:51 08/05/18 05:52 Period Temp Pulse Resp BP Sys/Chambers Pulse Ox Last 24 Hr 97.0 F-98.8 F 61-97 0-24 89-163/38-112 90-100 Intake and Output 08/04/18 08/05/18 08/05/18 21:59 05:59 13:59 Intake Total 1050 Output Total 252 300 Balance 1050 -252 -300 Weight 82.418 kg Intake & Output: Intake & Output 08/04/18 08/05/18 08/05/18 21:59 05:59 13:59 Intake Total 1050 Output Total 252 300 Balance 1050 -252 -300 Weight 82.418 kg Intake: IV 1050 Sodium Chloride 0.9% 1,000 ml @ 1000 Wide Open IV BOLUS ONE Rx#: [id number] Rocephin 1 gm In Dextrose 5% in 50 Water 50 ml @ 100 mls/hr IV Q24H [facility] Rx#:[id number] Output: Void Amount 250 300 # of times incontinent of urine 2 Other: Urine Appearance Sediment Cloudy Fem Cath Clear Urine Color Dark Yellow Bright Yellow Fem Cath Pale Exam: General: Alert, Awake, No acute Distress Eyes/N/T: EOMI, Head/Neck: neck supple, CV: Regular, No murmurs, Pulm: Clear b/l, no wheezing/rhonchi/rales Abd: soft, nontender, +BS x4, wound to the lower mid abdomen abdomen Ext: no clubbing/cyanosis/edema Neuro: Alert, no focal deficits, moves all extremities, dementia Skin: warm/dry Medical - PN: Obj Da - Labs CBC & Chem 7: 08/05/18 03:32 08/05/18 03:32 Labs: Abnormal Lab Results 08/05/18 08/05/18 08/04/18 03:32 03:32 15:55 Hgb 11.2 L Hct 34.0 L RDW 14.9 H Lymph # (Auto) 1.3 L Carbon Dioxide 20 L BUN Creatinine Glucose 117 H Calcium 8.1 L Alkaline Phosphatase 131 H Urine Protein 100 A Urine Occult Blood 0.03 A Ur Leukocyte Esterase 500 A Urine RBC 30 H Urine WBC > 182 H Ur Squamous Epith Cells 10 H Ur Transition Epith Cell 3 H Urine Bacteria Mod A Hyaline Casts 27 H Urine Mucus Many A 08/04/18 08/04/18 15:27 15:26 Hgb 11.7 L Hct RDW 14.8 H Lymph # (Auto) Carbon Dioxide 20 L BUN 24 H Creatinine 1.2 H Glucose 215 H Calcium Alkaline Phosphatase 140 H Urine Protein Urine Occult Blood Ur Leukocyte Esterase Urine RBC Urine WBC Ur Squamous Epith Cells Ur Transition Epith Cell Urine Bacteria Hyaline Casts Urine Mucus Meds: Medications Acetaminophen (Tylenol) 650 mg PO Q6HP PRN PRN Reason: PAIN/FEVER > 101 Albuterol/Ipratropium (Duoneb) 3 ml NEB Q4HP PRN PRN Reason: Shortness Of Breath Ceftriaxone Sodium (Rocephin) 1 gm IV Q24H [facility] Dextrose (Dextrose 50%) 0 ml IV UD PRN PRN Reason: Hypoglycemia Diagnostic Test (Pha) (Accu-Chek) 1 each FS ACHS [facility] Last Admin: 08/04/18 20:53 Dose: 1 each Documented by: Docusate Sodium (Colace) 100 mg PO BID [facility] Last Admin: 08/04/18 20:54 Dose: Not Given Documented by: Enalaprilat (Vasotec) 0 mg IV Q2HP PRN PRN Reason: Hypertension Enoxaparin Sodium (Lovenox) 40 mg SQ DAILY [facility] Glucose (Insta-Glucose) 15 gm PO PRN PRN PRN Reason: Hypoglycemia Haloperidol Lactate (Haldol) 5 mg IM ONCE ONE Stop: 08/05/18 05:03 Last Admin: 08/05/18 05:03 Dose: Not Given Documented by: Potassium Chloride 40 meq/ (Dextrose) 520 mls @ 130 mls/hr IV UD PRN PRN Reason: Potassium < 3 Magnesium Sulfate (Magnesium Sulfate) 2 gm in 50 mls @ 50 mls/hr IV UD PRN PRN Reason: Magnesium </= 1.6 Sodium Chloride (Sodium Chloride 0.9%) 1,000 mls @ 75 mls/hr IV .[id number] [facility] Stop: 08/05/18 08:12 Last Admin: 08/04/18 19:38 Dose: 75 mls/hr Documented by: Insulin Human Lispro (Humalog) 0 unit SQ ACHS [facility]; Protocol Last Admin: 08/04/18 20:54 Dose: 4 units Documented by: Lactulose (Cephulac) 10 gm PO DAILYP PRN PRN Reason: Constipation Olanzapine (Zyprexa) 5 mg IM ONCE [facility] Last Admin: 08/05/18 02:40 Dose: Not Given Documented by: Ondansetron HCl (Zofran) 4 mg IV Q4HP PRN PRN Reason: Nausea And Vomiting Polyethylene Glycol (Miralax) 17 gm PO DAILYP PRN PRN Reason: Constipation Potassium Chloride (Kdur) 40 meq PO UD PRN PRN Reason: Potssium is 3-3.5 Potassium Chloride (Kdur) 40 meq PO UD PRN PRN Reason: Potassium < 3 Promethazine HCl (Phenergan) 0 mg PO Q6HP PRN PRN Reason: Nausea And Vomiting Promethazine HCl (Phenergan) 12.5 mg WI Q6HP PRN PRN Reason: Pain Senna (Senokot) 2 tab PO HSP PRN PRN Reason: Constipation Sodium Chloride (Saline Flush) 10 ml IV Q8 [facility] Last Admin: 08/05/18 05:26 Dose: Not Given Documented by: Medical - PN: A/P - Time Spent With Patient Total time spent is greater than 50% in coordination of care (as documented) at patient's floor/unit and/or counseling patient: - Narrative A/P Narrative: A: *?Syncope vs decrease LOC/near-syncope: etiology ?hypotension vs neurocardiogenic in setting of UTI. doubt cardiac but did have prolonged QT on EKG -awaiting orthostatic VS, trying to find orthostatics from ED last night. *Hypotension: likely poor oral intake vs BP meds, Improved *UTI: *Abdominal wound: *Advanced dementia: *Hydrocephalus: Family does not want to pursue any aggressive measures including FORGE OPERATOR shunt *DM: On metformin *HTN: On lisinopril 10 mg daily *CKD III: * P: -IVF's finish -Rocephin pending -tele monitoring and frequent Vital signs -Orthostatic VS -wound care - -pt/ot -ppx: [employer]enox Medical - PN: Qual - VTE Deep Vein Thrombosis/Pulmonary Embolism Present on Admission: No
[2018-08-05] MEDS ORDERED: ENOXAPARIN 40 MG/0.4 ML SYRINGE SQ SCH (09:00)
[2018-08-05] MEDS ORDERED: cefTRIAXone 1 GM VIAL IV SCH (09:00)
--- NOTE | 2018-08-05 09:37 | Discharge Summary ---
Medical - DS: Prov Patient information: Note initiated : 08/05/18 at 9:34 am Service Date, if different from initiated Date: [] Patient: Kyleigh Nascimento a 78 y/o F admitted on 08/04/18 for Syncope. Chief Complaint: [] Date of admission: 08/04/18 18:50 Discharge date: 08/06/18 Primary care physician: Deep Hoover Consults: 08/04/18 Consult to Physician [CONS] Stat Comment: Consulting Provider: Milan Olvera Reason For Exam: Physician to Consult Medical - DS: Meds - Discharge Medications Active and Home Medications: Home Medications sitagliptin 100 mg tablet 100 mg PO QHS #90 tab 04/14/16 [Rx Confirmed 08/02/18 Last Taken Unknown] sennosides 8.6 mg tablet 8.6 mg PO BID #60 tab 10/21/16 [Rx Confirmed 08/02/18 Last Taken Unknown] Diabetic Shoes #1 ea 11/18/17 [Rx Confirmed 08/02/18 Last Taken Unknown] ketoconazole 2 % topical cream 1 applic TOPICAL BID #30 g 02/17/18 [Rx Confirmed 08/02/18 Last Taken Unknown] nystatin 100,000 unit/gram topical powder 1 applic TOPICAL BID #60 g 02/17/18 [Rx Confirmed 08/02/18 Last Taken Unknown] atorvastatin 20 mg tablet 20 mg PO QDAY #90 tab 07/18/18 [Rx Confirmed 08/02/18 Last Taken Unknown] lisinopril 10 mg tablet 10 mg PO QDAY #90 tab 07/18/18 [Rx Confirmed 08/02/18 Last Taken Unknown] metformin ER 1,000 mg tablet,extended release 24hr 1,000 mg PO QAM #30 tab 07/21/18 [Rx Confirmed 08/02/18 Last Taken Unknown] doxycycline hyclate 100 mg tablet 100 mg PO BID #20 tab 08/02/18 [Rx Confirmed 08/02/18 Last Taken Unknown] escitalopram 10 mg tablet 10 mg PO QDAY #90 tab 08/02/18 [Rx Last Taken Unknown] fluconazole 150 mg tablet 150 mg PO Q3D #3 tab 08/02/18 [Rx Confirmed 08/02/18 Last Taken Unknown] Medical - DS: Hosp Hospital course: Ms. Nascimento is a 78 year old F Who presents the ED for syncope. History is obtained from the chart as the patient has advanced dementia and unable to give history. Family members are not present, Per the chart patient was at a doctor's office for her with the daughter as well. The patient went to the bathroom and sat in the waiting room. Daughter states the patient became agitated took her wedding rings off and gave her a blank stare and passed out. Sounds like it took about 4 minutes for her to recover. No witnessed seizure activity mention no mention of urinary incontinence or tongue biting. History is vague on if it was actually syncope or decreased level of consciousness with near syncope. She has had continued mental decline especially as of late. Staying in bed longer each day. Also recently developed a rash wound on her abdomen. Uses marijuana cookies for agitation daughter states that helps. In the ED she had labile blood pressures with systolics as low as 89 and 90. EKG showed no arrhythmias but did have a prolonged QT, QRS was prolonged but that was chronic based on old EKGs. Urinalysis was dirty and had hyaline casts as well. Procalcitonin was mildly elevated borderline. Troponin and lactate were okay. Her blood glucose at the time EMS checked her in the office was okay. She did have a low blood pressure in the office of systolic 103, perhaps she has been running low. Imaging included chest x-ray which is unremarkable and a CT brain which showed moderate hydrocephalus. This was discussed with family regarding what it meant and potential treatments. Family does not want any aggressive measures including a POULTRY FARMER shunt as the patient mothers had a POULTRY FARMER shunt have made no difference. Unable to gather review of systems given patient's advanced dementia. 08/05 Became quite agitated and pulling at lines last night. Needed medication to calm her down. This morning she is resting comfortably in bed. No abnormalities on telemetry follow-up EKG with prolonged QT but better than yesterday EKG. No syncope. Labs unremarkable. Patient being treated for urinary tract infection. Unable to gather review of systems given patient's advanced dementia. 08/06 Patient becomes agitated at night. sleeping this morning. Patient has been in general decline for some time with family having more difficulty in taking care of her. Patient sleeping more. Family will pursue hospice on outpatient basis. Discharge diagnosis: Decreased LOC versus near syncope/syncope hypotension Secondary discharge diagnosis: General decline with advanced dementia UTI abdominal wound hydrocephalus diabetes hypertension chronic kidney disease - Time Spent with Patient Total time spent providing and/or coordinating discharge services: Greater than 30 minutes Medical - DS: Exam - Constitutional Vitals: Vital Signs Temp Pulse Resp BP BP BP Pulse Ox 08/05/18 05:52 14 90 08/05/18 05:51 12 136/71 93 08/05/18 04:18 98.7 F 23 H 98 08/05/18 03:18 16 144/82 97 08/05/18 03:17 12 08/05/18 03:03 14 08/05/18 02:40 13 94 08/05/18 01:49 75 16 156/84 100 08/05/18 00:08 98.8 F 15 105/89 95 08/04/18 22:50 24 H 111/91 08/04/18 22:43 15 103/76 08/04/18 21:53 23 H 08/04/18 21:38 61 24 H 103/76 93 08/04/18 20:41 22 140/88 95 08/04/18 20:33 136/112 08/04/18 20:28 20 124/94 08/04/18 19:37 81 18 08/04/18 19:31 80 14 129/74 94 08/04/18 19:16 78 136/76 95 08/04/18 19:07 76 15 117/65 94 08/04/18 18:53 97.2 F 23 H 117/65 117/65 95 08/04/18 18:47 68 107/56 93 08/04/18 18:32 107/51 08/04/18 18:31 137/60 08/04/18 18:23 137/60 08/04/18 18:22 125/53 08/04/18 17:36 65 18 89/38 94 08/04/18 17:17 74 89/38 93 08/04/18 17:12 75 103/47 94 08/04/18 16:02 16 126/54 08/04/18 15:47 82 12 94/52 91 08/04/18 15:42 87 0 L 98/53 92 08/04/18 15:05 97.0 F 97 H 20 163/112 93 Intake and Output 08/04/18 08/05/18 08/05/18 21:59 05:59 13:59 Intake Total 1050 Output Total 252 300 Balance 1050 -252 -300 Intake: IV 1050 Sodium Chloride 0.9% 1,000 ml @ 1000 Wide Open IV BOLUS ONE Rx#: [id number] Rocephin 1 gm In Dextrose 5% in 50 Water 50 ml @ 100 mls/hr IV Q24H [facility] Rx#:[id number] Output: Void Amount 250 300 # of times incontinent of urine 2 Other: Urine Appearance Sediment Cloudy Fem Cath Clear Urine Color Dark Yellow Bright Yellow Fem Cath Pale Weight 82.418 kg Medical - DS: Data Labs on day of discharge: Labs from last 24 hours 08/05/18 08/05/18 08/05/18 03:32 03:32 03:32 WBC 5.9 RBC 4.24 Hgb 11.2 L Hct 34.0 L MCV 80.2 MCH 26.4 MCHC 32.9 RDW 14.9 H Plt Count 174 MPV 9.2 Gran % 71.5 Lymph % (Auto) 21.2 Routt % (Auto) 6.8 Eos % (Auto) 0.1 Baso % (Auto) 0.4 Gran # 4.2 Lymph # (Auto) 1.3 L Routt # (Auto) 0.4 Eos # (Auto) 0 Baso # (Auto) 0 VBG Lactic Acid Sodium 142 Potassium 4.1 Chloride 108 Carbon Dioxide 20 L Anion Gap 14.0 BUN 21 Creatinine 1.1 GFR Calculation 48 Glucose 117 H Uric Acid 7.7 Calcium 8.1 L Phosphorus 3.8 Magnesium 1.7 Total Bilirubin 0.3 Direct Bilirubin < 0.2 GGT 14 AST 13 ALT 7 Alkaline Phosphatase 131 H Lactate Dehydrogenase 188 Total Creatine Kinase CK-MB (CK-2) Myoglobin Troponin T Total Protein 6.6 Albumin 3.3 Globulin 3.3 Albumin/Globulin Ratio 1.0 Triglycerides 122 Procalcitonin 0.32 TSH Urine Color Urine Appearance Urine pH Ur Specific Weaver Urine Protein Urine Glucose (UA) Urine Ketones Urine Occult Blood Urine Nitrate Urine Bilirubin Urine Urobilinogen Ur Leukocyte Esterase Urine RBC Urine WBC Ur Squamous Epith Cells Ur Transition Epith Cell Urine Bacteria Hyaline Casts Urine Mucus Ur Culture Indicated? 08/04/18 08/04/18 08/04/18 15:57 15:57 15:55 WBC RBC Hgb Hct MCV MCH MCHC RDW Plt Count MPV Gran % Lymph % (Auto) Routt % (Auto) Eos % (Auto) Baso % (Auto) Gran # Lymph # (Auto) Routt # (Auto) Eos # (Auto) Baso # (Auto) VBG Lactic Acid 1.5 Sodium Potassium Chloride Carbon Dioxide Anion Gap BUN Creatinine GFR Calculation Glucose Uric Acid Calcium Phosphorus Magnesium Total Bilirubin Direct Bilirubin GGT AST ALT Alkaline Phosphatase Lactate Dehydrogenase Total Creatine Kinase CK-MB (CK-2) Myoglobin Troponin T Total Protein Albumin Globulin Albumin/Globulin Ratio Triglycerides Procalcitonin TSH 2.78 Urine Color Yellow Urine Appearance Turbid Urine pH 5.0 Ur Specific Weaver 1.015 Urine Protein 100 A Urine Glucose (UA) Negative Urine Ketones Neg Urine Occult Blood 0.03 A Urine Nitrate Neg Urine Bilirubin Neg Urine Urobilinogen Neg Ur Leukocyte Esterase 500 A Urine RBC 30 H Urine WBC > 182 H Ur Squamous Epith Cells 10 H Ur Transition Epith Cell 3 H Urine Bacteria Mod A Hyaline Casts 27 H Urine Mucus Many A Ur Culture Indicated? No 08/04/18 08/04/18 08/04/18 15:27 15:26 15:26 WBC 6.8 RBC 4.49 Hgb 11.7 L Hct 36.2 MCV 80.6 MCH 26.1 MCHC 32.4 RDW 14.8 H Plt Count 176 MPV 9.5 Gran % 64.6 Lymph % (Auto) 27.4 Routt % (Auto) 6.8 Eos % (Auto) 0.9 Baso % (Auto) 0.3 Gran # 4.4 Lymph # (Auto) 1.9 Routt # (Auto) 0.5 Eos # (Auto) 0.1 Baso # (Auto) 0 VBG Lactic Acid Sodium Potassium Chloride Carbon Dioxide Anion Gap BUN Creatinine GFR Calculation Glucose Uric Acid Calcium Phosphorus Magnesium Total Bilirubin Direct Bilirubin GGT AST ALT Alkaline Phosphatase Lactate Dehydrogenase Total Creatine Kinase CK-MB (CK-2) Myoglobin Troponin T < 0.01 Total Protein Albumin Globulin Albumin/Globulin Ratio Triglycerides Procalcitonin 0.25 TSH Urine Color Urine Appearance Urine pH Ur Specific Weaver Urine Protein Urine Glucose (UA) Urine Ketones Urine Occult Blood Urine Nitrate Urine Bilirubin Urine Urobilinogen Ur Leukocyte Esterase Urine RBC Urine WBC Ur Squamous Epith Cells Ur Transition Epith Cell Urine Bacteria Hyaline Casts Urine Mucus Ur Culture Indicated? 08/04/18 08/04/18 15:26 15:26 WBC RBC Hgb Hct MCV MCH MCHC RDW Plt Count MPV Gran % Lymph % (Auto) Routt % (Auto) Eos % (Auto) Baso % (Auto) Gran # Lymph # (Auto) Routt # (Auto) Eos # (Auto) Baso # (Auto) VBG Lactic Acid Sodium 138 Potassium 4.7 Chloride 103 Carbon Dioxide 20 L Anion Gap 15.0 BUN 24 H Creatinine 1.2 H GFR Calculation 43 Glucose 215 H Uric Acid Calcium 8.6 Phosphorus Magnesium Total Bilirubin 0.4 Direct Bilirubin GGT AST 13 ALT 7 Alkaline Phosphatase 140 H Lactate Dehydrogenase Total Creatine Kinase 29 CK-MB (CK-2) 1.2 Myoglobin 28 Troponin T Total Protein 6.9 Albumin 3.5 Globulin 3.4 Albumin/Globulin Ratio 1.0 Triglycerides Procalcitonin TSH Urine Color Urine Appearance Urine pH Ur Specific Weaver Urine Protein Urine Glucose (UA) Urine Ketones Urine Occult Blood Urine Nitrate Urine Bilirubin Urine Urobilinogen Ur Leukocyte Esterase Urine RBC Urine WBC Ur Squamous Epith Cells Ur Transition Epith Cell Urine Bacteria Hyaline Casts Urine Mucus Ur Culture Indicated? Preliminary micro results at discharge 08/04/18 15:55 Urine Culture - Preliminary Urine - Clean Void [facility] - DS: A/P - Patient/Caregiver Discharge Instructions Activity: as per physical therapy Diet: Consistent Carbohydrate - Follow up Plan Follow up with: Deep Hoover MD [Primary Care Provider] - Disposition: Home Health Service Prognosis: Serious Rehab Potential: Fair Overall status at discharge: patient is back to baseline Medical - DS: Qual - VTE Deep Vein Thrombosis/Pulmonary Embolism Present on Admission: No
[2018-08-05] MEDS: INSULIN LISPRO 1 UNIT/0.01 ML UNIT SQ SCH ×4 (10:01→22:34)
--- NOTE | 2018-08-05 16:37 | General Surgery Consult Note ---
History of Present Illness Patient information: Note initiated : 08/05/18 at 4:35 pm Service Date, if different from initiated Date: [] Patient: Kyleigh Nascimento 78 y/o F admitted on 08/04/18 for Syncope. Chief Complaint: [] Consult date: 08/05/18 Requesting physician: Milan Stone (Abdomen wall wound) History of present illness: I saw this patient in ICU 120 / A along with Dr. stone and RN. CC: Consulted for chronic wound LEFT lower abdomen wall. Patient with h/o multiple medical problems. Admitted via ER following a syncopal episode UTI / ?? Urosepsis, Dementia, htn, dm2 . Patient DNR Status. ( Awaits evaluation for Hospice Placement ) Noted to have abdomen wall skin lesion / wound. Medications and Allergies Home Medications Medication Instructions Recorded Confirmed Type sennosides 8.6 mg tablet 8.6 mg PO BID #60 tab 10/21/16 08/06/18 Rx Diabetic Shoes #1 ea 11/18/17 08/02/18 Rx RX: Atorvastatin [Lipitor] 20 mg PO HS 08/05/18 08/05/18 History RX: Doxycycline Hyclate 100 mg PO BID 08/05/18 08/05/18 History RX: Escitalopram [Lexapro] 10 mg PO DAILY 08/05/18 08/05/18 History RX: Lisinopril [Zestril] 10 mg PO DAILY 08/05/18 08/05/18 History RX: Memantine [Namenda] 5 mg PO BID 08/05/18 08/05/18 History RX: metFORMIN [Glucophage] 1,000 mg PO [facility] 08/05/18 08/05/18 History Allergies Allergy/AdvReac Type Severity Reaction Status Date / Time iodine Allergy Mild Rash Verified 08/04/18 19:04 piroxicam [From Feldene] Allergy Mild Rash Verified 08/04/18 19:04 acetaminophen [From Vicodin] AdvReac Mild Nausea Verified 08/04/18 19:04 hydrocodone [From Vicodin] AdvReac Mild Nausea Verified 08/04/18 19:04 levofloxacin AdvReac Mild Vomiting Verified 08/04/18 19:04 Exam Temp Pulse Resp BP Pulse Ox 97.1 F 75 20 113/86 97 08/05/18 16:00 08/05/18 01:49 08/05/18 16:00 08/05/18 16:00 08/05/18 16:00 - General physical appearance well developed, moderate distress, chronically ill - Eyes PERRL, normal ocular movement - ENT normal nares, poor long term, other (Dry mucous membranes) - Head Head exam IM: Present: atraumatic, normocephalic - Neck trachea midline, no venous distension - Cardiovascular Cardiovascular exam IM: Present: normal rate and rhythm - Respiratory other (SOB with diminished air entry lung bases) - Abdomen Abdomen: Present: soft, non tender, bowel sounds - Integumentary Present: other (LLQ abdomen wall with area of chronic dermatitis / scar with superficial epidermal abrasion. NO signs of acute inflammation. NO purulence, crepitus, cellulits . ) - Neurologic Present: confused - Musculoskeletal Present: other (Bed confined) - Psychiatric Present: other (Unable to assess.) Results - Labs 08/05/18 03:32 08/05/18 03:32 Abnormal lab results 08/05/18 08/05/18 Range/Units 03:32 03:32 Hgb 11.2 L (12.0-15.0) g/dL Hct 34.0 L (36.0-48.0) % RDW 14.9 H (11.5-14.5) % Lymph # (Auto) 1.3 L (1.5-4.8) K/mcL Carbon Dioxide 20 L (22-30) mmol/L Glucose 117 H (70-105) mg/dL Calcium 8.1 L (8.6-10.4) mg/dl Alkaline Phosphatase 131 H (39-117) U/L Diabetes panel 08/05/18 Range/Units 03:32 Sodium 142 (133-145) mmol/L Potassium 4.1 (3.3-5.1) mmol/L Chloride 108 (96-108) mmol/L Carbon Dioxide 20 L (22-30) mmol/L BUN 21 (8-23) mg/dl Creatinine 1.1 (0.6-1.1) mg/dl Glucose 117 H (70-105) mg/dL Calcium 8.1 L (8.6-10.4) mg/dl AST 13 (0-37) U/l ALT 7 (0-40) U/l Alkaline Phosphatase 131 H (39-117) U/L Total Protein 6.6 (5.9-8.4) gm/dL Albumin 3.3 (3.2-5.2) gm/dL Triglycerides 122 (<150) mg/dl Thyroid panel 08/04/18 Range/Units 15:57 TSH 2.78 (0.27-5.01) uIU/ml Calcium panel 08/05/18 Range/Units 03:32 Calcium 8.1 L (8.6-10.4) mg/dl Phosphorus 3.8 (2.7-4.5) mg/dL Albumin 3.3 (3.2-5.2) gm/dL Pituitary panel 08/04/18 08/05/18 Range/Units 15:57 03:32 Sodium 142 (133-145) mmol/L Potassium 4.1 (3.3-5.1) mmol/L Chloride 108 (96-108) mmol/L Carbon Dioxide 20 L (22-30) mmol/L BUN 21 (8-23) mg/dl Creatinine 1.1 (0.6-1.1) mg/dl Glucose 117 H (70-105) mg/dL Calcium 8.1 L (8.6-10.4) mg/dl TSH 2.78 (0.27-5.01) uIU/ml Adrenal panel 08/05/18 Range/Units 03:32 Sodium 142 (133-145) mmol/L Potassium 4.1 (3.3-5.1) mmol/L Chloride 108 (96-108) mmol/L Carbon Dioxide 20 L (22-30) mmol/L BUN 21 (8-23) mg/dl Creatinine 1.1 (0.6-1.1) mg/dl Glucose 117 H (70-105) mg/dL Calcium 8.1 L (8.6-10.4) mg/dl Total Bilirubin 0.3 (0.0-1.0) mg/dL AST 13 (0-37) U/l ALT 7 (0-40) U/l Alkaline Phosphatase 131 H (39-117) U/L Total Protein 6.6 (5.9-8.4) gm/dL Albumin 3.3 (3.2-5.2) gm/dL All other labs normal. Assessment and Plan (1) Dermatitis Assessment: Chronic dermatitis ?? prior surgical scar. Superficial epidermal skin tear < 2 CM dry. Plan: Protective Hydrofera blue dressing . Will see again PRN basis, if still in hospital. Status: Chronic Priority: Low
[2018-08-05] MEDS: DOCUSATE SODIUM 100 MG CAPSULE PO SCH ×2 (16:39→22:33)
[2018-08-05] MEDS ORDERED: MAGNESIUM SULFATE 2 GM/50 ML BAG IV PRN (16:44)
[2018-08-05] MEDS ORDERED: DEXTROSE 31 GM ORAL.SUSP PO PRN (16:44)
[2018-08-05] MEDS ORDERED: POLYETHYLENE GLYCOL 3350 17 GM PACKET PO PRN (16:44)
[2018-08-05] MEDS ORDERED: ONDANSETRON 4 MG/2 ML VIAL IV PRN (16:44)
[2018-08-05] MEDS ORDERED: ACETAMINOPHEN 325 MG TABLET PO PRN (16:44)
[2018-08-05] MEDS ORDERED: SENNOSIDES 1 TABLET PO PRN (16:44)
[2018-08-05] MEDS ORDERED: LACTULOSE 20 GM/30 ML ORAL.SOL PO PRN (16:44)
[2018-08-05] MEDS ORDERED: POTASSIUM CHLORIDE 20 MEQ TABLET PO PRN ×2 (16:44)
[2018-08-05] MEDS ORDERED: PROMETHAZINE 12.5 MG SUPP.RECT PR PRN (16:44)
[2018-08-05] MEDS ORDERED: IPRATROPIUM/ALBUTEROL 3 ML AMPUL.NEB NEB PRN (16:44)
[2018-08-05] MEDS ORDERED: ENALAPRILAT 1.25 MG/ML VIAL IV PRN (16:44)
[2018-08-05] MEDS ORDERED: PROMETHAZINE 25 MG TABLET PO PRN (16:44)
[2018-08-05] MEDS ORDERED: DEXTROSE 50% 50 ML VIAL IV PRN (16:44)
[2018-08-05] MEDS ORDERED: POTASSIUM CHLORIDE 40 MEQ in DEXTROSE 5% IN WATER 500 ML IV PRN (16:44)
[2018-08-05] MEDS ORDERED: HALOPERIDOL LACTATE 5 MG/ML VIAL IM PRN (20:13)
[2018-08-06] MEDS: 0.9 % SODIUM CHLORIDE 10 ML SYRINGE IV SCH (05:46)
[2018-08-06] MEDS: INSULIN LISPRO 1 UNIT/0.01 ML UNIT SQ SCH ×2 (08:48→12:43)
[2018-08-06] MEDS ORDERED: ENOXAPARIN 40 MG/0.4 ML SYRINGE SQ SCH (09:00)
[2018-08-06] MEDS ORDERED: LEVOFLOXACIN 750 MG TABLET PO SCH (09:00)
[2018-08-06] MEDS: DOCUSATE SODIUM 100 MG CAPSULE PO SCH (10:01)
[2018-08-06] MEDS ORDERED: DOXYCYCLINE HYCLATE 100 MG TABLET.ORL PO SCH (21:00)
[2018-08-06] MEDS ORDERED: MEMANTINE 10 MG TABLET PO SCH (21:00)
[2018-08-06] MEDS ORDERED: SENNOSIDES 1 TABLET PO SCH (21:00)
[2018-08-06] MEDS ORDERED: ATORVASTATIN 20 MG TABLET PO SCH (21:00)
[2018-08-07] MEDS ORDERED: metFORMIN 500 MG TAB.XL.24H PO SCH (08:00)
[2018-08-07] MEDS ORDERED: LISINOPRIL 10 MG TABLET PO SCH (09:00)
[2018-08-07] MEDS ORDERED: ESCITALOPRAM 10 MG TABLET PO SCH (09:00)
== END 2018-08-06 12:42 | disposition home health service (06) ==
LOC: ED 15:04 → ICU 15:04
PROVIDERS: ADMIT Internal Medicine; ATTEND Internal Medicine